=== PATIENT | female | born 1970 | race Caucasian/White ===

== ENCOUNTER 2024-01-03 21:19 | Emergency (ER) | payer OTHER, SELFPAY ==
[2024-01-03 21:27] VITALS: BP 125/60; PULSE 84; RESP 18; TEMP 36.5; O2SAT 97; BMI 26.6
[2024-01-03 22:05] LABS: MANUAL DIFF FLAG NO
--- NOTE | 2024-01-03 22:06 | MHC.EDTECH ---
PATIENT BLOOD DRAWN AND SENT TO LAB .
[2024-01-03 22:09] LABS: Basophils Percent Auto 0.2 % (0-2); Eosinophils Absolute Auto 0.4 X10*3/uL (0.0-0.4); Eosinophils Percent Auto 4.8 % (0-4); Hematocrit 33.8 % (37.0-47.0); Hemoglobin 11.1 g/dl (12.0-16.0); Imm Gran Abs Auto 0.03 X10*3/uL (0.00-0.03); Imm Gran Pct Auto 0.3 % (0.0-0.4); Lymphocytes Absolute Auto 1.2 X10*3/uL (1.2-4.9); Lymphocytes Percent Auto 13.1 % (20-40); Mean Corpuscular HGB Conc 32.8 g/dl (31.0-35.0); Mean Corpuscular Hemoglobin 31.8 pg (27.0-33.0); Mean Corpuscular Volume 96.8 fL (80.0-98.0); Mean Platelet Volume 8.1 fL (9.4-12.3); Monocytes Absolute Auto 0.5 X10*3/uL (0.1-1.2); Monocytes Percent Auto 5.6 % (2-11); Neutrophils Absolute Auto 6.7 x10*3/uL (2.0-8.3); Platelet Count 359 X10*3/uL (160-400); Red Blood Count 3.49 X10*6/uL (4.20-5.50); Red Cell Distribution Width 14.1 % (11.0-16.0); White Blood Count 8.8 X10*3/uL (4.8-10.8)
[2024-01-03 22:20] LABS: Alanine Aminotransferase 19 U/L (0-31); Albumin Level 3.7 g/dL (3.5-5.0); Alkaline Phosphatase 43 U/L (39-117); Anion Gap 11 (12-20); Aspartate Amino Transferase 16 U/L (5-31); Bilirubin Direct < 0.2 mg/dL (0.0-0.5); Bilirubin Total 0.2 mg/dL (0.0-1.0); Blood Urea Nitrogen 21 mg/dL (9-16); Calcium 9.3 mg/dL (8.4-10.2); Carbon Dioxide 26 mmol/L (22-29); Chloride 106 mmol/L (96-108); Creatinine Clr Calc Pharmacy 89.4; Estimated Glomerular Filt Rate > 60; Glucose Random 107 mg/dL (60-115); Potassium 3.7 mmol/L (3.3-5.1); Sodium 139 mmol/L (135-145); Total Protein 6.6 g/dL (6.5-8.0)
[2024-01-03 23:53] VITALS: BP 116/62; PULSE 82; RESP 16; O2SAT 97
--- NOTE | 2024-01-04 00:29 | ED_ITS ---
HPI - General Adult General Chief complaint: Recheck/Abnormal Lab/Rx Stated complaint: dark tissue from cosmetic surgery Time Seen by Provider: 01/03/24 23:53 Source: patient Mode of arrival: ambulatory Limitations: no limitations History of Present Illness HPI narrative: Patient is status post breast reduction surgery on 12/23/2023 in [place] drain were removed 2 days ago comes here as she noticed blackish discoloration of the nipples since earlier today no significant pus discharge no fever or redness no significant pain patient able to reach surgeon till Saturday Related Data Previous Rx's Medication Instructions Recorded clindamycin HCl 300 mg capsule 300 mg PO TID #30 caps 01/04/24 Allergies Allergy/AdvReac Type Severity Reaction Status Date / Time Penicillins Allergy Hives Verified 01/03/24 21:27 Review of Systems 2 Review of Systems: Yes all other systems are reviewed and are negative [facility] Social History Social History Advance Directives: No Advance Directives Information Provided: No Physical Exam ED Vital Signs: Vital Signs - 24 hr 01/03/24 21:27 01/03/24 23:53 Temperature 97.7 F Pulse Rate 84 82 Respiratory Rate 18 16 Blood Pressure 125/60 116/62 Pulse Oximetry 97 97 Oxygen Delivery Method Room Air Room Air BMI result Body Mass Index 26.6 Chest Chest/axillae images: 2 1. Blackish necrotic area of the nipple no pus discharge or redness 2. Blackish necrotic area of the nipple no pus discharge or redness Medical Decision Making Medical Decision Making MDM Narrative: Patient with necrosis of nipples postop will start patient on clindamycin advised to follow-up with surgeon as soon as possible no signs of deep infection Lab Data [facility] Lab Attestation statement: I reviewed the patient's lab results. 01/03/24 22:01 01/03/24 22:01 Labs: Lab Results 01/03/24 Range/Units 22:01 WBC 8.8 (4.8-10.8) X10*3/uL RBC 3.49 L (4.20-5.50) X10*6/uL Hgb 11.1 L (12.0-16.0) g/dl Hct 33.8 L (37.0-47.0) % MCV 96.8 (80.0-98.0) fL MCH 31.8 (27.0-33.0) pg MCHC 32.8 (31.0-35.0) g/dl RDW 14.1 (11.0-16.0) % Plt Count 359 (160-400) X10*3/uL MPV 8.1 L (9.4-12.3) fL Immature Gran % (Auto) 0.3 (0.0-0.4) % Neut % (Auto) 76.0 H (45-73) % Lymph % (Auto) 13.1 L (20-40) % [place] % (Auto) 5.6 (2-11) % Eos % (Auto) 4.8 H (0-4) % Baso % (Auto) 0.2 (0-2) % Lymph # (Auto) 1.2 (1.2-4.9) X10*3/uL [place] # (Auto) 0.5 (0.1-1.2) X10*3/uL Eos # (Auto) 0.4 (0.0-0.4) X10*3/uL Baso # (Auto) 0.0 (0.0-0.2) X10*3/uL Abs Immat Gran (auto) 0.03 (0.00-0.03) X10*3/uL Absolute Neuts (auto) 6.7 (2.0-8.3) x10*3/uL Absolute Nucleated RBC 0.000 (0.0-0.012) X10*3/uL Nucleated RBC % (auto) 0.0 (0.0-0.2) /100WBC Sodium 139 (135-145) mmol/L Potassium 3.7 (3.3-5.1) mmol/L Chloride 106 (96-108) mmol/L Carbon Dioxide 26 (22-29) mmol/L Anion Gap 11 L (12-20) BUN 21 H (9-16) mg/dL Creatinine 0.85 (0.5-1.4) mg/dL Estim Creat Clear Calc 89.4 Estimated GFR > 60 Random Glucose 107 (60-115) mg/dL Calcium 9.3 (8.4-10.2) mg/dL Total Bilirubin 0.2 (0.0-1.0) mg/dL Direct Bilirubin < 0.2 (0.0-0.5) mg/dL AST 16 (5-31) U/L ALT 19 (0-31) U/L Alkaline Phosphatase 43 (39-117) U/L Total Protein 6.6 (6.5-8.0) g/dL Albumin 3.7 (3.5-5.0) g/dL Discharge Plan Discharge Clinical Impression: Skin necrosis Patient Disposition: Home, Self-Care Instructions: Gangrene (DC) Additional Instructions: Likely you have breast nipple necrosis postop Please follow-up with surgeon and wound care Antibiotic as prescribed Prescriptions: New clindamycin HCl 300 mg capsule 300 mg PO TID Qty: 30 0RF
[2024-01-04] MEDS: Clindamycin HCL 300 MG CAPSULE PO (00:37)
== END 2024-01-04 00:42 | disposition home or self-care (01) ==
PROVIDERS: Emergency Provider Internal Medicine; PCP Internal Medicine
DX: I96 Gangrene, not elsewhere classified (principal)
CPT/HCPCS: 36415; 80048; 80076; 85025; 99283; 99284

== ENCOUNTER 2024-03-29 06:41 | Emergency (ER) | payer OTHER, SELFPAY ==
[2024-03-29 06:51] VITALS: BP 130/71; PULSE 96; RESP 18; TEMP 37.1; O2SAT 98; BMI 23.7
[2024-03-29 07:12] LABS: Appearance Urine Clear; Color Urine Yellow; Glucose Urine UA Negative (Negative); Leukocyte Esterase Urine Large (3+) (Negative); Nitrite Urine Negative (Negative); Specific Gravity - Urine <= 1.005 (1.005-1.025); UMIC TRIGGER UACC YES; Urine Blood Large (3+) (Negative); Urine Ketones Negative (Negative); Urine Protein 30 (1+) mg/dL (Neg-Trace)
--- NOTE | 2024-03-29 07:13 | ED.FEMALEGU ---
HPI - Female Genitourinary General Chief complaint: Urogenital-Female Stated complaint: UTI Time Seen by Provider: 03/29/24 07:06 Source: patient Mode of arrival: ambulatory Limitations: no limitations History of Present Illness HPI Narrative: 53 yo female with no significant medical history presents to the ER for evaluation of UTI symptoms. She states has had frequency and urgency w/ bladder pressure since last night. She had 1 episodes of pink tinge to her urine this morning. No back pain, nausea, vomiting, fever, chills, vaginal bleeding or discharge. She is post menopausal. History of 1 other UTI in her life. MD elicited complaint: UTI Onset (ago): hour(s) Location of symptoms: suprapubic Severity: moderate Female Urogenital Radiation: Non-Radiating Quality of pain: burning and aching Consistency: constant Vaginal discharge: none Vaginal bleeding: none Urinary symptoms: Urgency and Frequency Exacerbating factors: urination Relieving factors: none Associated symptoms: denies other symptoms Treatment prior to arrival: none Patient : No Related Data Previous Rx's ?Medication ?Instructions ?Recorded clindamycin HCl 300 mg capsule 300 mg PO TID #30 caps 01/04/24 cefuroxime axetil 250 mg tablet 250 mg PO BID #10 tabs 03/29/24 phenazopyridine 100 mg tablet 100 mg PO TID PRN pain 6 doses #6 03/29/24 (Pyridium) tabs Allergies Allergy/AdvReac Type Severity Reaction Status Date / Time Penicillins Allergy Hives Verified 03/29/24 06:52 Review of Systems Review of Systems: Yes all other systems are reviewed and are negative PMFSH Social History Social History Smoked in Last 30 Days: No Use of substances other than those prescribed or required for medical reasons: No Advance Directives: No Advance Directives Information Provided: No Patient : No Physical Exam Vital Signs: Vital Signs: Last Vital Signs Temp 98.8 F 03/29/24 07:24 Pulse 96 03/29/24 07:24 Resp 18 03/29/24 07:24 BP 130/71 03/29/24 07:24 Pulse Ox 98 03/29/24 07:24 O2 Del Method Room Air 03/29/24 06:51 BMI result Body Mass Index 23.7 Appearance: Alert. Oriented X3. No acute distress. HEENT: normal external inspection Neck: Normal inspection. CVS: Normal heart rate and rhythm. Pulses normal. Respiratory: No respiratory distress. Breath sounds normal. Abdomen: Soft with mild suprapubic tenderness without rebound or guarding, normal active +BS x4. pelvic deferred Skin: Skin warm and dry. Normal skin color. Normal skin turgor. No rashes. Extremities: No lower extremity edema. No joint swelling. Neuro/psych: Oriented X 3. No motor deficit. No sensory deficit. CN II-XII intact. Normal speech and cognition. Medications Administered Discontinued Medications Generic Name Dose Route Start Last Admin Trade Name Freq PRN Reason Stop Dose Admin Cefuroxime Axetil 500 mg 03/29/24 07:14 03/29/24 07:21 Cefuroxime Axetil 500 Mg Tablet PO 03/29/24 07:15 500 mg ONCE ONE Administration Phenazopyridine HCl 100 mg 03/29/24 07:14 03/29/24 07:19 Phenazopyridine Hcl 100 Mg Tablet PO 03/29/24 07:15 100 mg ONCE ONE Administration Medical Decision Making Medical Decision Making [facility] Narrative: 53 yo female presenting with urinary frequency and urgency, 1 episode of hematuria this morning. she has no back pain or abdominal pain other than subrapubic full sensation. UA is c/w UTI. +microscopic hematuria likely due to infection will start on ceftin and pyridium patient counseled on dx and tx, as well as return precautions. stable for d/c home Differential Diagnosis Differential Diagnoses: The differential diagnosis associated with the presentation includes simple UTI, complicated UTI, pyelonephritis, kidney stone Lab Data [facility] Lab Attestation statement: I reviewed the patient's lab results. UA + for infection Labs: Lab Results 03/29/24 Range/Units 06:56 Urine Color Yellow Urine Appearance Clear Urine pH 7.0 (5.0-9.0) Ur Specific [place] <= 1.005 (1.005-1.025) Urine Protein 30 (1+) H (Neg-Trace) mg/dL Urine Glucose (UA) Negative (Negative) mg/dL Urine Ketones Negative (Negative) mg/dL Urine Blood Large (3+) H (Negative) Urine Nitrite Negative (Negative) Ur Leukocyte Esterase Large (3+) H (Negative) Urine RBC 3-5 H (0-2) /HPF Urine WBC >50 H (0-5) /HPF Ur Squamous Epith Cells 0-2 (0-2) /HPF Urine Bacteria None Seen (None Seen) Hyaline Casts 0-2 (0-2) /LPF External Record Review External record reviewed: Prior outpatient labs Tests considered The following testing was considered but not selected: CT scan abd/pelvis considered due to hematuria Prescription Management I considered prescription management with: Pain Medication and Antibiotic Critical Care Time Critical Care Time Critical Care Time: No Discharge Plan Discharge Clinical Impression: Urinary tract infection Patient Disposition: Home, Self-Care Instructions: Urinary Tract Infection in Women (DC) Additional Instructions: Take the prescribed antibiotics as directed, complete the entire course and do not miss any doses Next dose is due around 7pm tonight Take the prescribed Pyridium for bladder pain. It will turn your urine orange, this is a normal side effect. Drink plenty of water If you develop new or worsening symptoms call 911 or come back to the ER for further evaluation. Prescriptions: New cefuroxime axetil 250 mg tablet 250 mg PO BID Qty: 10 0RF phenazopyridine [Pyridium] 100 mg tablet 100 mg PO TID PRN (Reason: pain) Qty: 6 0RF No Action clindamycin HCl 300 mg capsule 300 mg PO TID Qty: 30 0RF Interventions: ED Discharge Assessment Last Done: 03/29/24 07:24 Discharge Date/Time: 03/29/24 07:25 Print Language: Luxem[place]
[2024-03-29] MEDS: Phenazopyridine HCL 100 MG TABLET PO (07:19)
[2024-03-29] MEDS: cefuroxime axetiL 500 MG TABLET PO (07:21)
[2024-03-29 07:24] VITALS: BP 130/71; PULSE 96; RESP 18; TEMP 37.1; O2SAT 98
[2024-03-29 07:25] LABS: Bacteria Urine None Seen (None Seen); Hyaline Casts Urine 0-2 /LPF (0-2); Squamous Epithelial Cell Urine 0-2 /HPF (0-2); UACC Culture Trigger YES; WBC Urine >50 /HPF (0-5)
== END 2024-03-29 07:25 | disposition home or self-care (01) ==
PROVIDERS: Emergency Provider Emergency Medicine
DX: N39.0 Urinary tract infection, site not specified (principal)
CPT/HCPCS: 81001; 87086; 99283; 99284